=== PATIENT | female | born 1965 | race Two or more races ===

== ENCOUNTER → 2018-07-24 | Day surgery (SDC) | payer OTHER ==
[~2018-07-24] MED LIST: LEVOXYL50 MCG PO; SERTRALINE HCL50 MG PO
== END | disposition home or self-care (01) ==
LOC: ADM 07-19 12:15 → CIR.AMB 07:52
DX: D12.9 Benign neoplasm of anus and anal canal (principal); K64.1 Second degree hemorrhoids